=== PATIENT | female | born 1995 | race Caucasian/White ===

== ENCOUNTER 2022-04-14 10:26 | Emergency (ER) | payer BC, SELFPAY ==
--- NOTE | 2022-04-14 10:29 | ED.SKABFB ---
HPI - Skin/Abscess/Foreign Bdy General Stated complaint: Skin Problem Time Seen by Provider: 04/14/22 10:48 Source: patient and RN notes reviewed Mode of arrival: ambulatory Limitations: no limitations History of Present Illness HPI narrative: 26-year-old female presents with concern for cyst on the right side of her face. Reports she was seen by her primary physician for this cyst 1 week ago and was put on clindamycin. Reports the cyst has worsened since then. Reports its become painful, red and larger. She reports she gets cysts on her face frequently, she is going to see a foundry operator for removal of the noninflamed cysts. She denies drainage from the inflamed cyst complaint: abscess/boil Related Data Home Medications Medication Instructions Recorded Confirmed clindamycin HCl 300 mg capsule 300 mg PO BID 04/14/22 04/14/22 escitalopram oxalate 10 mg tablet 10 mg PO DAILY 04/14/22 04/14/22 levetiracetam 750 mg tablet 1,500 mg PO DAILY 04/14/22 04/14/22 Allergies Allergy/AdvReac Type Severity Reaction Status Date / Time No Known Allergies Allergy Verified 04/14/22 10:40 Review of Systems Review of Systems: CONSTITUTIONAL: Denies malaise, chills, sweats, or fever. EYES: Denies redness, or discharge. ENT: Denies swollen lips, swollen tongue CARDIOVASCULAR: Denies chest pain, palpitations, or edema. RESPIRATORY: Denies cough or dyspnea. GASTROINTESTINAL: Denies abdominal pain, nausea, vomiting SKIN: Reports a painful cyst on the right side of her face near her ear MUSCULOSKELETAL: Denies joint painor myalgia. NEUROLOGIC: Denies headache. All systems reviewed & are unremarkable except as noted in HPI and below PMFSH Comments At time of signature, agree with nursing past medical, surgical, social and family history. There is no relevant family history pertinent to the presenting complaint Exam Narrative: GENERAL: Well-appearing, well-nourished, and in no acute distress. HEAD: Normocephalic, atraumatic. EYES: PERRLA, conjunctivae clear, and EOMI. ENT: Mucous membranes moist. Oropharynx without edema, erythema or lesions. NECK: Supple. No lymphadenopathy CHEST: Clear to auscultation. No respiratory distress. HEART: Regular rate and rhythm. SKIN: Warm, dry. Raised fluctuant nodule, erythematous approximately 2 cm in diameter noted to the right cheek, next to the ear, not involving the ear NEURO: Alert and oriented x3. PSYCH: Normal mood and affect Course Course Emergency Course: Patient is aware of diagnosis, understands and agrees to treatment plan. Anticipatory guidance given. Patient agrees to follow-up as directed and is aware of reasons to seek care at the emergency department. Portions of this record may have been created with voice recognition software Level of Care: Express Care Visit Vital Signs Vital signs: Reviewed. Procedures Abscess I/D face: Date of Incision: 04/14/22 Side (if applicable): right Local Anesthetic: lidocaine 1% Technique: incised with #11 blade Amount of fluid expressed (mL): 3 Irrigation: Yes Packing used?: none I&D Results: Pus MDM - Skin/Abscess/Foreign Bdy MDM Narrative Medical decision making narrative: Verbal consent was obtained. The indication for the procedure was clinical suspicion for an abscess. The region was anesthetized with 1% lidocaine. The most fluctuant portion of the abscess was incised with an 11 blade scalpel. The abscess cavity of explored and evacuated, all loculations were broken up with a curved hemostat. Steri-Strip placed to facilitate wound closure and minimize scarring, wound still slightly draining through the, a clean gauze dressing was applied. I was present for this entire procedure and there were no complications Critical Care Time Critical Care Time Critical Care Time: No Discharge Plan Discharge Clinical Impression: Cyst of face, Encounter for incision and drainage proce
[2022-04-14 10:33] VITALS: BP 103/63; PULSE 84; RESP 14; TEMP 36.6; O2SAT 100
[2022-04-14 10:42] VITALS: BP 103/63; PULSE 84; RESP 14; TEMP 36.6; O2SAT 100
== END 2022-04-14 11:19 | disposition home or self-care (01) ==
PROVIDERS: Emergency Provider Nurse Practitioner
DX: L72.9 Follicular cyst of the skin and subcutaneous tissue, unspecified (principal); G40.909 Epilepsy, unspecified, not intractable, without status epilepticus; F41.9 Anxiety disorder, unspecified; F32.A Depression, unspecified
CPT/HCPCS: 10060; 87070; 87205; 99202; G0463

== ENCOUNTER 2023-04-20 11:05 | Outpatient (NON) | payer BC, SELFPAY | END 2023-04-20 11:06 | disposition home or self-care (01) | LOC: ANHLAB 04-21 11:07 | PROVIDERS: Visit Provider Nurse Practitioner | DX: L72.0 Epidermal cyst (principal) | CPT/HCPCS: 88304 ==

== ENCOUNTER 2023-04-27 10:33 | Outpatient (NON) | payer BC, SELFPAY | END 2023-04-27 10:34 | disposition home or self-care (01) | LOC: ANHLAB 04-28 10:35 | PROVIDERS: Visit Provider Nurse Practitioner | DX: R22.9 Localized swelling, mass and lump, unspecified (principal) | CPT/HCPCS: 88305 ==